=== PATIENT | female | born 1990 | race African-American/Black ===

== ENCOUNTER 2021-11-06 18:47 | Emergency (ER) | payer MEDICAID, OTHER ==
[~2021-11-06] VITALS: Ht 157.5 cm; Wt 59.0 kg
[2021-11-06 18:57] VITALS: BP 123/80
[2021-11-06] MEDS ORDERED: SODIUM CHLORIDE 0.9% 1,000 ML IV ONE (20:30)
[2021-11-06 21:25] LABS: Urine Bacteria NONE SEEN /hpf (None Seen); Urine Blood Negative /uL (Negative); Urine Mucus FEW (None Seen); Urine Specific Gravity 1.024 (1.001-1.035); Urine WBC 1 /hpf (0 - 5)
[2021-11-06 21:33] LABS: Basophils # (auto) 0 10 ^3/uL (0-0.2); Basophils % (auto) 0.5 % (0.0-2.0); Eosinophils # (auto) 0 10 ^3/uL (0-0.8); Eosinophils % (auto) 0.3 % (0.0-7.0); Hematocrit 44.9 % (36.0-46.0); Hemoglobin 15.5 g/dL (12.2-16.2); Lymphocytes # (auto) 2.1 10 ^3/uL (0.4-5.4); Lymphocytes % (auto) 23.9 % (10.0-50.0); Mean Corpuscular Hemoglobin 35.4 pg (28.0-32.0); Mean Corpuscular Hgb Conc. 34.6 g/dL (32.0-36.0); Mean Corpuscular Volume 102.4 fL (80.0-100.0); Monocytes # (auto) 0.9 10 ^3/uL (0-1.3); Monocytes % (auto) 9.9 % (0.0-12.0); Neutrophils # (auto) 5.7 10 ^3/uL (1.6-8.6); Neutrophils % (auto) 65.4 % (37.0-80.0); Nucleated Red Blood Cells % 0.1 %; Red Blood Cells 4.38 10^6/uL (4.0-5.20); Red Cell Distribution Width 13.2 % (11.8-14.3); White Blood Cell 8.7 10^3/uL (4.4-10.8)
[2021-11-06 21:35] LABS: Alcohol, Urine < 3.0 mg/dL (0-10); Amphetamine Screen, Urine NEGATIVE (NEGATIVE); Barbiturate Scree,Urine NEGATIVE (NEGATIVE); Benzodiazephine Screen, Urine NEGATIVE (NEGATIVE); Cannabinoid Screen, Urine POSITIVE (NEGATIVE); Cocaine Screen, Urine NEGATIVE (NEGATIVE); Opiate Scree,Urine NEGATIVE (NEGATIVE); Phencyclidine Screen, Urine NEGATIVE (NEGATIVE)
[2021-11-06 21:46] LABS: INR 0.98 (0.9-1.15); Partial Thromboplastin Time 29.3 sec (23.6-33.0)
[2021-11-06 21:50] LABS: Alanine Aminotransferase 106 U/L (13-56); Albumin 4.8 g/dL (3.4-5.0); Anion Gap 16 (5-15); Aspartate Aminotransferase 111 U/L (15-37); BUN/Creatinine Ratio 10.1; Blood Alcohol < 3.0 mg/dL (0-5); Blood Urea Nitrogen 8 mg/dL (7-18); Calcium 9.6 mg/dL (8.5-10.1); Carbon Dioxide 15 mmol/L (21-32); Chloride 103 mmol/L (98-107); GFR African American 108 mL/min; GFR Non-African American 90 mL/min; Glucose 63 mg/dL (74-106); Magnesium 2.5 mg/dL (1.6-2.6); Potassium 3.9 mmol/L (3.5-5.1); Sodium 134 mmol/L (136-145)
[2021-11-06 21:56] LABS: Alkaline Phosphatase 69 U/L (45-117)
== END 2021-11-06 22:45 | disposition left against medical advice (07) ==
LOC: EDBD 18:47 → ER 18:52
DX: R56.9 Unspecified convulsions (principal); N39.0 Urinary tract infection, site not specified; F12.10 Cannabis abuse, uncomplicated; F17.210 Nicotine dependence, cigarettes, uncomplicated; Z91.040 Latex allergy status
CPT/HCPCS: 36415; 70450; 71045; 80053; 80307; 80320; 81001; 81025; 83735; 84484; 84702; 85025; 85610; 85730; 93005; 96360; 99285; J7030

== ENCOUNTER 2022-08-14 13:25 | Inpatient (IN) | payer MEDICAID ==
[~2022-08-14] VITALS: Ht 157.5 cm; Wt 50.5 kg
[2022-08-14 14:20] LABS: Basophils # (auto) 0 10 ^3/uL (0-0.2); Basophils % (auto) 0.1 % (0.0-2.0); Eosinophils # (auto) 0 10 ^3/uL (0-0.8); Mean Corpuscular Hemoglobin 36.9 pg (28.0-32.0); Mean Corpuscular Hgb Conc. 34.1 g/dL (32.0-36.0); Neutrophils # (auto) 10.3 10 ^3/uL (1.6-8.6)
[2022-08-14 14:25] LABS: Hematocrit 44.5 % (36.0-46.0); Hemoglobin 15.2 g/dL (12.2-16.2); Lymphocytes # (auto) 1.3 10 ^3/uL (0.4-5.4); Lymphocytes % (auto) 10.1 % (10.0-50.0); Mean Corpuscular Volume 108.4 fL (80.0-100.0); Neutrophils % (auto) 81.8 % (37.0-80.0); Red Cell Distribution Width 12.6 % (11.8-14.3); White Blood Cell 12.6 10^3/uL (4.4-10.8)
[2022-08-14 14:29] LABS: Calcium 9.5 mg/dL (8.5-10.1); Potassium 4.2 mmol/L (3.5-5.1)
[2022-08-14 14:33] LABS: BUN/Creatinine Ratio 8.3; Bilirubin, Total 0.9 mg/dL (0.2-1.0); Total Protein 8.9 g/dL (6.4-8.2)
[2022-08-14 15:37] LABS: Urine Specific Gravity 1.024 (1.001-1.035)
[2022-08-14 15:38] LABS: Urine Blood Trace /uL (Negative)
[2022-08-14] MEDS ORDERED: IOHEXOL 350 MG/ML 100ML IJ ONE ×2 (17:40→20:03)
[2022-08-14] MEDS ORDERED: MORPHINE SULFATE 4 MG/ML SYR/VIAL IV ONE (17:45)
[2022-08-14] MEDS ORDERED: SODIUM CHLORIDE 0.9% 1,000 ML IV ONE ×2 (17:45)
[2022-08-14] MEDS ORDERED: ENOXAPARIN SOD 60 MG/0.6 ML SYRINGE SC ONE (17:45)
[2022-08-14] MEDS ORDERED: ONDANSETRON HCL 4 MG/2 ML VIAL IV ONE (17:45)
[2022-08-14 18:17] LABS: Urine WBC <1 /hpf (0 - 5)
[2022-08-14 18:18] LABS: Urine Bacteria FEW /hpf (None Seen); Urine Mucus FEW (None Seen)
[2022-08-14] MEDS ORDERED: MULTIPLE VITAMIN TAB PO ONE (19:45)
[2022-08-14] MEDS ORDERED: LORazepam 2MG/ML-1ML VIAL IV PRN (19:45)
[2022-08-14] MEDS ORDERED: FOLIC ACID 1 MG TAB PO ONE (19:45)
[2022-08-14] MEDS ORDERED: MORPHINE SULFATE INJ 2 MG/ml SYRG IV PRN (19:45)
[2022-08-14] MEDS ORDERED: ACETAMINOPHEN 325 MG TAB PO PRN (19:45)
[2022-08-14] MEDS ORDERED: DOCUSATE SOD 100 MG CAP PO PRN (19:45)
[2022-08-14] MEDS ORDERED: THIAMINE HCL 100 MG TAB PO ONE (19:45)
[2022-08-14] MEDS ORDERED: NITROGLYCERIN 0.4 MG SL TAB SL PRN (19:45)
[2022-08-14 20:04] LABS: Alcohol, Urine < 3.0 mg/dL (0-10); Amphetamine Screen, Urine NEGATIVE (NEGATIVE); Barbiturate Scree,Urine NEGATIVE (NEGATIVE); Benzodiazephine Screen, Urine NEGATIVE (NEGATIVE); Cannabinoid Screen, Urine POSITIVE (NEGATIVE); Cocaine Screen, Urine NEGATIVE (NEGATIVE); Opiate Scree,Urine NEGATIVE (NEGATIVE); Phencyclidine Screen, Urine NEGATIVE (NEGATIVE)
[2022-08-14 20:52] LABS: Blood Alcohol < 3.0 mg/dL (0-5); Magnesium 1.8 mg/dL (1.6-2.6)
[2022-08-14] MEDS: chlordiazePOXIDE HCL 25 MG CAP PO SCH (21:35)
[2022-08-15] MEDS: ONDANSETRON HCL 4 MG/2 ML VIAL IV PRN (04:21)
[2022-08-15] MEDS: chlordiazePOXIDE HCL 25 MG CAP PO SCH ×3 (04:21→21:34)
[2022-08-15 05:09] LABS: Basophils # (auto) 0 10 ^3/uL (0-0.2); Basophils % (auto) 0.2 % (0.0-2.0); Eosinophils # (auto) 0 10 ^3/uL (0-0.8); Lymphocytes # (auto) 1.1 10 ^3/uL (0.4-5.4); Monocytes # (auto) 0.9 10 ^3/uL (0-1.3)
[2022-08-15 05:12] LABS: Hematocrit 42.3 % (36.0-46.0); Lymphocytes % (auto) 9.6 % (10.0-50.0); Mean Corpuscular Hemoglobin 37.5 pg (28.0-32.0); Mean Corpuscular Hgb Conc. 35.4 g/dL (32.0-36.0); Mean Corpuscular Volume 105.9 fL (80.0-100.0); Neutrophils # (auto) 9.4 10 ^3/uL (1.6-8.6); Neutrophils % (auto) 82.2 % (37.0-80.0); Red Cell Distribution Width 12.6 % (11.8-14.3); White Blood Cell 11.4 10^3/uL (4.4-10.8)
[2022-08-15 05:25] LABS: Albumin 4.3 g/dL (3.4-5.0); Calcium 9.5 mg/dL (8.5-10.1); Potassium 4.1 mmol/L (3.5-5.1)
[2022-08-15 05:29] LABS: BUN/Creatinine Ratio 14.3; Total Protein 7.3 g/dL (6.4-8.2)
[2022-08-15] MEDS: MULTIPLE VITAMIN TAB PO SCH (09:46)
[2022-08-15] MEDS: FOLIC ACID 1 MG TAB PO SCH (09:46)
[2022-08-15] MEDS: cefTRIAXone 1GM/50ML D5W 50 ML IV SCH (09:46)
[2022-08-15] MEDS: THIAMINE HCL 100 MG TAB PO SCH (09:46)
[2022-08-15 14:47] VITALS: BP 109/79
[2022-08-15 22:00] VITALS: BP 106/62
[2022-08-16 05:00] VITALS: BP 104/76
[2022-08-16 09:00] VITALS: BP 111/83
[2022-08-16] MEDS: chlordiazePOXIDE HCL 25 MG CAP PO SCH ×2 (09:49→22:18)
[2022-08-16] MEDS: FOLIC ACID 1 MG TAB PO SCH (09:49)
[2022-08-16] MEDS: MULTIPLE VITAMIN TAB PO SCH (09:50)
[2022-08-16] MEDS: cefTRIAXone 1GM/50ML D5W 50 ML IV SCH (09:51)
[2022-08-16] MEDS: THIAMINE HCL 100 MG TAB PO SCH (09:51)
[2022-08-16] MEDS: ONDANSETRON HCL 4 MG/2 ML VIAL IV PRN (10:14)
[2022-08-16] MEDS ORDERED: ALUM & MAG HYDROX-SIMETH LIQ(MAALOX) 30 ML PO PRN (13:30)
[2022-08-16 14:55] VITALS: BP 97/64
[2022-08-16 22:00] VITALS: BP 90/58
[2022-08-16 22:18] VITALS: BP 109/68
[2022-08-17 05:00] VITALS: BP 103/64
[2022-08-17 09:00] VITALS: BP 102/72
[2022-08-17] MEDS: chlordiazePOXIDE HCL 25 MG CAP PO SCH (09:00)
[2022-08-17] MEDS: FOLIC ACID 1 MG TAB PO SCH (09:00)
[2022-08-17] MEDS: MULTIPLE VITAMIN TAB PO SCH (09:01)
[2022-08-17] MEDS: THIAMINE HCL 100 MG TAB PO SCH (09:01)
[2022-08-17] MEDS: cefTRIAXone 1GM/50ML D5W 50 ML IV SCH (09:02)
[2022-08-17] MEDS ORDERED: PANTOPRAZOLE 40 MG/10 ML VIAL INJ IV SCH (10:00)
[2022-08-17] MEDS ORDERED: CIPR-173 PO (11:28)
[2022-08-17] MEDS ORDERED: PANT40TA2 PO (11:30)
[2022-08-17] MEDS ORDERED: ONDA-144 PO (11:30)
[2022-08-18] MEDS ORDERED: chlordiazePOXIDE HCL 25 MG CAP PO SCH (07:00)
== END 2022-08-17 13:09 | disposition home or self-care (01) | DRG 203 ==
LOC: ER 13:25 → EDBD 13:25 → TELE 19:38 → TELE-E-ADS 08-15 13:39 → TELE-EAST 08-15 17:32
PROVIDERS: ADMIT Nurse Practitioner Family; ATTEND Internal Medicine
DX: M94.0 Chondrocostal junction syndrome [Tietze] (principal); N17.0 Acute kidney failure with tubular necrosis; N39.0 Urinary tract infection, site not specified; F10.239 Alcohol dependence with withdrawal, unspecified; F17.210 Nicotine dependence, cigarettes, uncomplicated; Z20.822 Contact with and (suspected) exposure to COVID-19; Z91.040 Latex allergy status; R65.10 Systemic inflammatory response syndrome (SIRS) of non-infectious origin without acute organ dysfunction
CPT/HCPCS: 36415; 71260; 74177; 80053; 80307; 80320; 81001; 81025; 83735; 84484; 85025; 85379; 87086; 87426; 93005; 96361; 96365; 96372; 96375; 96376; C9113; G0378; J0696; J2405